=== PATIENT | male | born 1970 | race Caucasian/White ===

== ENCOUNTER 2016-11-26 00:26 | Observation (INO) | payer BC ==
[~2016-11-26] VITALS: Ht 185.4 cm; Wt 133.0 kg
[2016-11-26] VITALS (9 sets, daily range): BP systolic 104–151; BP diastolic 56–86
[~2016-11-26 00:26] MED LIST: ACIPHEX 20 MG T20 MG PO; ASPIR-LOW81 MG PO; AUGMENTIN 500 M1 TAB PO; METOPROLOL25 MG PO; NIACIN500 M2 PO; NORCO 325 MG-51 TAB PO; PREDNISONE 20MG20 MG PO; SIMVASTATIN20 MG PO; ULTRAM50 MG PO; VENLAFAXINE75 M1 PO
[2016-11-26 00:41] LABS: URINE BILIRUBIN - DIPSTICK NEGATIVE (NEG); URINE BLOOD TRACE-INTACT (NEG)
[2016-11-26] MEDS ORDERED: METFORMIN HCL1000 MG PO (00:41)
[2016-11-26] MEDS ORDERED: SIMVASTATIN20 MG PO (00:42)
[2016-11-26] MEDS ORDERED: PANTOPRAZOLE SO40 MG PO (00:42)
[2016-11-26] MEDS ORDERED: ASPIRIN 81MG TA81 MG PO (00:43)
[2016-11-26] MEDS ORDERED: NIASPAN500 MG PO (00:43)
--- OUTSIDE RECORDS SUMMARY | 2016-11-26 00:49 | External Medical Summary Rpt ---
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 530.81 530.81 01-13-2013 [facility] REFLUX [facility] 692.71 692.71 01-13-2013 [facility] V58.69 V58.69 OT 01-13-2013 [place] [facility] Allergies, Adverse Reactions, Alerts Type Allergy to substance Drug Allergy Adverse Reaction to Substance Substance Reaction Severity INGREDIENT: NO KNOWN Unknown Unknown - NO KNOWN DRUG ALLERGY NO KNOWN DRUG Unknown Unknown ALLERGIES Medications Na ND Rx Da Fi Fi Am Da Di Ph RX Ph St me C No te ll ll ou ys ag ar # ys at rm s nt no ma ic us Or Da si cy ia de te s n re d SI 61 06 0 No LV 57 -2 AD 00 5- Lo EN 13 20 ng E 14 13 er 1% 0 Ac CR ti EA ve M AC 51 06 0 No ET 07 -2 AM 90 5- Lo IN 16 20 ng OP 19 13 er HE 9H N Ac W/ ti CO ve DE IN E #3 TA K HY [address] 51 -2 OX 75 5- Lo YZ 60 20 ng IN 12 13 er E 5 50 Ac ti MG ve /M L AL De 00 06 0 No xa 51 -2 me 74 5- Lo th 90 20 ng as 12 13 er on 5 e Ac 4M ti G/ ve Ml Sd v KE 00 06 0 No TO 40 -2 RO 93 5- Lo LA 79 20 ng C 60 13 er 60 1 Ac MG ti /2 ve ML AL Vital Signs 01-13-2013 04:15 Name Value Interpretat Reference Comment ion Range BP 81 mm[Hg] Diastolic BP Systolic 155 mm[Hg] Heart 111 /min Rate/Pulse O2% 97 % Respiratory 20 /min Rate Encounters Encounter Start End Date Code Location Performer Type Date Emergency NATHALIE Boston MD (ER) 3 03:40 3 04:16 [facility]
--- OUTSIDE RECORDS SUMMARY | 2016-11-26 00:49 | External Medical Summary Rpt ---
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 E[facility] USE Hospital Allergies, Adverse Reactions, Alerts [...] Boston MD (ER) 3 03:40 3 04:16 [facility]
--- OUTSIDE RECORDS SUMMARY | 2016-11-26 00:50 | External Medical Summary Rpt ---
Author Author [employer], [employer] Organization [employer] Address Unknown Phone Unavailable
--- OUTSIDE RECORDS SUMMARY | 2016-11-26 00:50 | External Medical Summary Rpt ---
Author Author [employer] Organization [employer] Address Unknown Phone Unavailable Purpose Continuity of Care Document - through 2016
[2016-11-26 01:12] LABS: LYMPH # 3.1 K/mm3 (0.7-4.5); LYMPH % 26.6 % (10-50)
[2016-11-26 01:23] LABS: HEMOGLOBIN 15.4 g/dL (14.1-18.0)
[2016-11-26 01:36] LABS: BUN 7 mg/dL (7-18)
[2016-11-26 01:37] LABS: GFR (ESTIMATED) 65 ML/MIN (>60)
--- NOTE | 2016-11-26 01:59 | Emergency Room Report ---
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 N Clinical Suspician of Infection? N Mental Status: 1 - Regular (Normal Baseline) Sepsis Risk:Possible Sepsis Risk Have you (or family members/close friends) recently traveled outside the [place]? N If Yes, where/when: Have you had exposure to infectious disease within the past month? TB? Other? Specify: Source patient, RN notes reviewed, family, RN/MD Exam Limitations no limitations Comment This is a 46-year-old male patient presenting to the emergency room with sudden onset of RIGHT upper quadrant abdominal pain since 10:30 PM, associated with several episodes of nausea or vomiting. Patient has eaten some pizza around 9 PM, after which he started getting sick. Patient denies any previous similar episodes in the past. She denies any recent travel or exposure to sick contacts. He denies any diarrhea, shortness of breath, fever, chills, back pain. ALLERGIES Coded Allergies: No Known Allergies (11/26/16) Home Medications Reported Medications Metoprolol Tartrate (Metoprolol) 25 MG PO DAILY VENLAFAXINE HCL (Venlafaxine HCl ER) 75 MG PO DAILY Simvastatin 20 MG PO DAILY METFORMIN HCL (Metformin 1000MG) 1,000 MG PO BID #180 Pantoprazole Sodium (Pantoprazole 40MG) 40 MG PO BID Simvastatin 20 MG PO DAILY NIACIN (Niacin) 500 MG PO QHS ASPIRIN (Aspirin) 81 MG PO DAILY History Medical History General CAD? No Angina: No AK: No Hypertension? Yes Hyperlipidemia? Yes CHF? No DVT? No PE? No COPD? No Asthma? No Anemia? No GERD? Yes Gastric ulcers? Yes GI Bleed? No Hernia? No Thyroid Problems? No Hypothyroidism? No CVA? No Seizures? No Diabetes? No Insulin Dependent: No Insulin Pump: No Home FSBS? No Renal Insuffiency? No End Stage Renal Disease? No UTI? No Stones? Yes BPH? No GB Disease: No Nephritic Syndrome? No Asplenia? No Hepatitis? No Arthritis? No Migraines? No Cataracts? No Glaucoma? No MRSA? No HIV? No TB? No Anxiety? No Depression? Yes Cancer? No More? No Immunization Hx DT/Tetanus 04/06/2010 Flu 2YRSorMore Pneumonia NEVER Surgical Hx Previous Surgery?Y T&A VASECTOMY ARTHROSCOPY R. KNEE X 3 RT CLAVICLE REPAIR R ACL LITHOTRIPSY RENAL STENT CYST REMOVED RT WRIST Family History Family Hx Diabetes Yes CAD Yes Hypertension Yes Hyperlipidemia Yes Cancer Yes TB No Social History Smoking Hx Smoker: Never Smoker Tobacco: No Alcohol Alcohol: No Review of Systems All Other Systems Reviewed and Negative Gastrointestinal abdominal pain, denies diarrhea, nausea, vomiting Physical Exam Vital Signs Vital Signs Date Time Temp Pulse Resp B/P Pulse O2 O2 Flow FiO2 Ox Delivery Rate 11/26 0244 20 11/26 0239 86 20 114/61 97 11/26 0115 20 11/26 0101 20 11/26 0031 98.0 109 20 151/86 97 General Appearance normal appearance, WD/WN, severe distress Neck normal inspection, non-tender, supple, full range of motion Respiratory Status Yes: trachea midline, chest symmetrical, non tender chest. No: respiratory distress. Lung Sounds bilateral: normal breath sounds, lungs clear. 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 No Comment 02:45-patient reexamined, he remains in pain, still nauseated, dry heaving. Additional Dilaudid/Phenergan ordered for patient's comfort. Offered fluids to drink, patient declined. DDx: ACS, biliary colic, acute pancreatitis, bowel perforation, ileus, bowel obstruction, etc. 02:55am - case discussed Dr. Jaimes, advised of patient's presentation, findings, vital signs, ED course. Dr. Jaimes agreeable with admission, as well as management so far. Care transferred Dr. Jaimes at this time. I'll write temporary bridge admission orders per hospital protocol. Upon patient's arrival to the floor the unit nurse will contact Dr. Jaimes once again in order to obtain full inpatient admission orders. Results/Orders Laboratory Tests 11/26/16 0050: Sodium 140, Potassium 3.8, Chloride 101, Carbon Dioxide 31, BUN 7, Creatinine 1.2, Estimated Creat Clear 145, Estimated GFR (MDRD) 65, Glucose 118 H, Calcium 9.1, Total Bilirubin 0.3, AST 28, ALT 39, Alkaline Phosphatase 73, Creatine Kinase 123, CK-MB (CK-2) Rel Index 0.4, CK and CKMB Interp < 0.5, Troponin I < 0.02, Total Protein 7.7, Albumin 3.8, Globulin 3.9 H, Albumin/Globulin Ratio 1.0 L, Amylase 49, Lipase 188, WBC 11.7 H, RBC 5.48, Hgb 15.4, Hct 47.9, MCV 87.3, RDW 12.6, Plt Count 335, MPV 5.8 L, Gran % 61.8, Gran # 7.2, Lymphocytes % 26.6, Monocytes % 7.1, Eosinophils % 3.5, Basophils % 1.1, Lymphocytes # 3.1, Monocytes # 0.8, Eosinophils # 0.4, Basophils # 0.1, PUBS MCHC 32.3, MCH 28.2 11/26/16 0030: Urine Color YELLOW, Urine Appearance CLEAR, Urine pH 6.0, Ur Specific [place] 1.020, Urine Protein NEGATIVE, Urine Ketones NEGATIVE, Urine Blood TRACE-INTACT, Urine Nitrate NEGATIVE, Urine Bilirubin NEGATIVE, Urine Urobilinogen 1.0, Ur Leukocyte Esterase NEGATIVE, Urine Glucose NEGATIVE Current Medication Orders Sig/Shalom Start time Last Medication Dose Route Stop Time Status Admin Hydromorphone HCl 1 MG ONCE ONE 11/26 244 DC 11/26 IV 11/26 245 024 Promethazine HCl 12.5 MG ONCE ONE 11/26 244 DC 11/26 IV 11/26 245 024 Sodium Chloride 1,000 ML .Q1H1M 11/26 244 AC 11/26 IV 11/26 344 024 Sodium Chloride 10 ML PRN PRN 11/26 244 AC IV 11/27 0235 Sodium Chloride 25 ML ONCE ONE 11/26 0245 DC 11/26 IV 11/26 0259 0245 Sodium Chloride 1,000 ML .STK-MED ONE 11/26 0241 DC IV Hydromorphone HCl 1 MG ONCE ONE 11/26 0115 DC 11/26 IV 11/26 0116 0115 Promethazine HCl 0 .STK-MED ONE 11/26 0115 DC .ROUTE Hydromorphone HCl 0 .STK-MED ONE 11/26 0112 DC .ROUTE Ketorolac 30 MG ONCE ONE 11/26 0100 DC 11/26 Tromethamine IV 11/26 010 0101 Ondansetron HCl 4 MG ONCE ONE 11/26 010 DC 11/26 IV 11/26 0101 0101 Sodium Chloride 1,000 ML .Q1H1M 11/26 0100 DC 11/26 IV 11/26 0200 0102 Sodium Chloride 10 ML PRN PRN 11/26 0100 AC IV 11/27 0053 Ondansetron HCl 0 .STK-MED ONE 11/26 0048 DC .ROUTE Sodium Chloride 1,000 ML .STK-MED ONE 11/26 0048 DC IV Ketorolac 0 .STK-MED ONE 11/26 0047 DC Tromethamine .ROUTE Sodium Chloride 10 ML PRN PRN 11/26 0045 AC IV 11/27 0035 Orders Procedure Date/time Status DIET-NOTHING BY MOUTH 11/26 B Active ELECTROCARDIOGRAM REQUEST 11/26 0252 Active CARDIAC ENZYMES 11/[address] ABD & PELVIS W/O CONTRAST 11/[address] ABD/PELVIS REQ 11/26 0053 Active CHEST(2 VIEWS-NOT PORTABLE) 11/26 0053 Active ELECTROCARDIOGRAM REQUEST 11/26 0035 Active IV SALINE LOCK 11/26 0035 Active URINALYSIS/COMPLETE 11/26 003 Complete LIPASE 11/26 003 Complete COMPLETE METABOLIC PANEL 11/26 003 Complete CBC WITH AUTO DIFF 11/26 34 Complete CARDIAC ENZYMES 11/26 003 Complete AMYLASE 11/26 003 Complete FHS-[id number]-HFTVEL BY SAME 11/26 UNK Active 12 LEAD EKG-CANDI (INITIAL) 11/26 UNK Active 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 of ischemic chgs, no ectopy, normal QRS, normal IN, normal EKG, no EKG for comparison, non-spec. ST/Twave chgs, ST elevation, ST depression, LBBB, RBBB, ectopy, abnormal Q waves XRAY/CT/US XRAY/CT/US CT abdomen, pelvis CT interpretation by discussed w/radiologist CT Results see radiologist's report, Shaheen Abreu at 2:28am EST. - "no definite acute abdominal pathology finding" Departure Departure Time of Disposition 0253 Disposition Still a Patient Clinical Impression Primary Impression: Nausea and vomiting Qualifiers: Vomiting type: unspecified Vomiting Intractability: unspecified Qualified Code: R11.2 - Nausea with vomiting, unspecified Secondary Impressions: RUQ abdominal pain Condition STABLE Discharge Counseling Counseled pt/family regarding diagnosis, test results, medications/RX, home care, follow up needs ED Critical Care Critical Care No at 0301
--- NOTE | 2016-11-26 05:10 | RADIOLOGY REPORT PS360 ---
CHEST(2 VIEWS-NOT PORTABLE) HISTORY: Chest pain, epigastric pain CP ORDERING PHYSICIAN: Annabel Jaimes MD PATIENT AGE: 46 years COMPARISON: 12/26/2012 FINDINGS: The cardiomediastinal silhouette and pulmonary vascularity are within normal limits. The lungs are clear without infiltrates, suspicious nodules, or pleural effusions. No acute bony abnormalities. IMPRESSION: Negative chest, no acute finding
--- NOTE | 2016-11-26 05:25 | RADIOLOGY REPORT PS360 ---
CT ABD PELVIS W/O CONTRAST CLINICAL INDICATION: severe epigastric pain with nausea and vomiting, Abdominal pain, epigastric pain, N/V ORDERING PHYSICIAN: Annabel Jaimes MD PATIENT AGE: 46 years COMPARISON: 02/02/2014 TECHNIQUE: Axial images obtained with sagittal and coronal reformats. PROCEDURE: Oral Contrast: None IV Contrast: None . FINDINGS: Lower thorax: No acute finding ABDOMEN: Liver: No masses or biliary dilatation. Gallbladder: Nondistended. No radio opaque stones. Pancreas: No masses or peripancreatic fluid collections. Spleen: Mildly enlarged at 14 cm Adrenals: Unremarkable Kidneys/ureters: There are small punctate bilateral renal nonobstructing calculi. No hydronephrosis. No ureteral calculi. Stomach bowel: Nondistended. No obvious mass or thickening. Appendix: No evidence of appendicitis. PELVIS: Reproductive: Unremarkable Bladder: Nondistended. No obvious stones or masses. ABDOMEN & PELVIS: Peritoneum: No abnormal fluid collections. No obvious inflammatory changes. No free air. Lymph nodes: No enlarged lymph nodes apparent. Vasculature: No evidence of abdominal aortic aneurysm. No retroperitoneal hemorrhage evident. Bones: No acute fracture IMPRESSION: 1. Mild splenomegaly. 2. Otherwise negative CT abdomen and pelvis with no acute intra-abdominal or pelvic pathology apparent 3. No significant change from 02/02/2014
[2016-11-26] MEDS ORDERED: METOPROLOL SUCC50 M4 PO (08:49)
--- NOTE | 2016-11-26 09:13 | PHARMACY CLINIC NOTE ---
Patient Demographics Patient Demographics Admission date: 11/26/16 Date: 11/26/16 Time: 912 Allergies Coded Allergies: No Known Allergies (11/26/16) HEIGHT- FT: 6 IN: 1.00 K.046 VTE General Information Labs: Laboratory Tests 11/26 0050 Hematology Hgb (14.1 - 18.0 g/dL) 15.4 Hct (42.0 - 52.0 %) 47.9 Plt Count (142 - 424 K/mm3) 335 Disclaimer The following section includes nursing documentation that has been pulled in for pharmacy review. Patient's VTE score: 0 Patient's VTE Risk: VERY LOW RISK Clinical trial participant? No VTE prophylaxis [id number] [id number] VTE prophylaxis ordered? Yes Type of prophylaxis/treatment: SHIVANI at 0913
--- NOTE | 2016-11-26 09:21 | HISTORY AND PHYSICAL REPORT ---
History and Physical (FCA) Date of admission: 11/26/16 Chief complaint: stomach pain and vomiting History: History of Present Illness: Mr Stroud is a 46 year old male with a history of Type 2 DM who presented to [facility] ER last PM with nausea, vomiting and abdominal pain. He states that the pain began after eating 2 slices of pizza and taking his PM meds. He describes the pain like someone sitting on his stomach. He denies diarrhea, fever and hematemesis. With the persistent vomiting, he presented to the ER. He received phenergan, hydromorphone, and 2 liters of IVF without relief and was thus admitted for further evaluation and treatment. He is followed by his PCP, Dr. Esquivel. Past Medical History: Medical History: CAD? No Angina: No CT: No Hypertension? Yes Hyperlipidemia? Yes CHF? No DVT? No PE? No COPD? No Asthma? No Anemia? No GERD? Yes Gastric ulcers? Yes GI Bleed? No Hernia? No Thyroid Problems? No Hypothyroidism? No CVA? No Seizures? No Diabetes? Yes Insulin Dependent: No Insulin Pump: No Home FSBS? Yes Renal Insuffiency? No UTI? No Stones? Yes BPH? No GB Disease: No Nephritic Syndrome? No Asplenia? No Hepatitis? No Sickle Cell Disease? No Arthritis? No Migraines? No Cataracts? No Glaucoma? No MRSA? No HIV? No TB? No Anxiety? No Depression? Yes Cancer? No More? No Surgical history: Previous Surgery?Y T&A VASECTOMY ARTHROSCOPY R. KNEE X 3 RT CLAVICLE REPAIR R ACL LITHOTRIPSY RENAL STENT CYST REMOVED RT WRIST Medications: Reported Medications Pantoprazole Sodium (Pantoprazole 40MG) 40 MG PO DAILY Metoprolol Succinate (Metoprolol Succinate XL) 50 MG PO DAILY #90 TAB VENLAFAXINE HCL (Venlafaxine HCl ER) 75 MG PO DAILY Simvastatin 20 MG PO DAILY METFORMIN HCL (Metformin 1000MG) 1,000 MG PO BID #180 NIACIN (Niacin) 500 MG PO QHS ASPIRIN (Aspirin) 81 MG PO DAILY Allergies: Coded Allergies: No Known Allergies (11/26/16) Family History: Family history: Postive for: CAD, DM. Social History: Smoking Hx Tobacco: No Smoker: Never Smoker Type: N/A Packs/day: N/A Are you exposed to second hand No Alcohol: Alcohol: No Hx of Drug Use: Drug Use? 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 Cardiovascular No: chest pain, edema, palpitations. Respiratory No: shortness of air, non-productive. GI Positive for: abdominal pain, nausea, vomitting. No: GERD, anorexia, constipation, diarrhea, hematemeis, hematochezia, melena. (male) No: hematuria. Neurological No: dizziness, gait problem, headache, seizure, syncope. Musculoskeletal No: extremity pain, joint pain, myalgias. Psychiatric Positive for: depression. Physical Exam: Vital signs: 1ST Vital Signs Result Date Time Pulse Ox 97 11/26 30 B/P 151/86 11/26 30 Temp 98.0 11/26 30 Pulse 109 11/26 30 Resp 20 11/26 30 O2 Delivery ROOM AIR 11/26 0404 Exam: General appearance: alert, active, no acute distress, well-developed, well- nourished Eyes: anicteric, EOM's w/normal ROM, pupils reactive to light ENT: mucous membranes moist, pharynx normal, teeth/gums normal Neck: no carotid bruit, lymphadenopathy (absent), thyroid (normal) Cardiovascular: regular rate & rhythm Respiratory: clear to auscultation (bilat anterior and posterior) ABD: non-distended, soft, bowel sounds present, tender epigastrium; + Alvares' s Extremities: no peripheral edema, no calf tenderness Neuro: alert, oriented, speech clear Lab data: Labs: Laboratory Tests 11/26/16 0617: POC Glucose 134 H 11/26/16 0255: Creatine Kinase 101, CK-MB (CK-2) Rel Index 0.7, CK and CKMB Interp 0.7, Troponin I < 0.02 11/26/16 0050: Sodium 140, Potassium 3.8, Chloride 101, Carbon Dioxide 31, BUN 7, Creatinine 1.2, Estimated Creat Clear 145, Estimated GFR (MDRD) 65, Glucose 118 H, Calcium 9.1, Total Bilirubin 0.3, AST 28, ALT 39, Alkaline Phosphatase 73, Creatine Kinase 123, CK-MB (CK-2) Rel Index 0.4, CK and CKMB Interp < 0.5, Troponin I < 0.02, Total Protein 7.7, Albumin 3.8, Globulin 3.9 H, Albumin/Globulin Ratio 1.0 L, Amylase 49, Lipase 188, WBC 11.7 H, RBC 5.48, Hgb 15.4, Hct 47.9, MCV 87.3, RDW 12.6, Plt Count 335, MPV 5.8 L, Gran % 61.8, Gran # 7.2, Lymphocytes % 26.6, Monocytes % 7.1, Eosinophils % 3.5, Basophils % 1.1, Lymphocytes # 3.1, Monocytes # 0.8, Eosinophils # 0.4, Basophils # 0.1, PUBS MCHC 32.3, MCH 28.2 11/26/16 0030: Urine Color YELLOW, Urine Appearance CLEAR, Urine pH 6.0, Ur Specific [place] 1.020, Urine Protein NEGATIVE, Urine Ketones NEGATIVE, Urine Blood TRACE-INTACT, Urine Nitrate NEGATIVE, Urine Bilirubin NEGATIVE, Urine Urobilinogen 1.0, Ur Leukocyte Esterase NEGATIVE, Urine WBC 3-5, Urine Bacteria 1+, Urine Glucose NEGATIVE Radiology results: Results: 11/26/16 CXR IMPRESSION: Negative chest, no acute finding 11/26/16 CT of abdomen/pelvis IMPRESSION: 1. Mild splenomegaly. 2. Otherwise negative CT abdomen and pelvis with no acute intra-abdominal or pelvic pathology apparent 3. No significant change from 02/02/2014 Diagnosis(es): 1. RUQ abdominal pain Status: Acute 2. Nausea and vomiting Status: Acute 3. HTN (hypertension) Status: Chronic 4. Diabetes type 2, controlled Status: Chronic 5. Hyperlipidemia Status: Chronic Plan: RUQ US this AM; pain and nausea control; IVF (Onofre CELESTEChristelle) Date of admission: 11/26/16 History: History of Present Illness: Further to the above history, it is noted that the onset of nausea and vomiting and abdominal pain last night was rather abrupt. He denies previous history of postprandial nausea or abdominal pain. He has no past history of ulcer disease, hiatal hernia, pancreatitis, or gallbladder disease. He does take pantoprazole for reflux. He has had no change in his bowels. No fever. During my interview, he localizes the pain to the epigastric area. Diagnosis(es): 1. RUQ abdominal pain Status: Acute 2. Nausea and vomiting Status: Acute 3. HTN (hypertension) Status: Chronic 4. Diabetes type 2, controlled Status: Chronic 5. Hyperlipidemia Status: Chronic 6. Depression Plan: Patient seen and examined this morning. No further vomiting since admission. He still complains of epigastric pain. Will proceed with gallbladder ultrasound and HIDA scan today as ordered. (Annabel Jaimes MD) at 0921 at 2016
--- NOTE | 2016-11-26 10:19 | RADIOLOGY REPORT PS360 ---
US GALLBLADDER (ABD LTD) HISTORY: Right upper quadrant pain, vomiting, abdominal pain RUQ abdominal pain ORDERING PHYSICIAN: Annabel Jaimes MD PATIENT AGE: 46 years COMPARISON: None FINDINGS: PANCREAS: Unremarkable. No obvious mass or abnormal fluid collection. No ductal dilatation LIVER: No focal liver lesions demonstrated. Homogeneous echogenicity. No intrahepatic biliary ductal dilatation evident RIGHT KIDNEY: Unremarkable. Normal size and echogenicity. No hydronephrosis GALLBLADDER: No gallstones, gallbladder wall thickening, pericholecystic fluid, or biliary dilatation. Gallbladder is somewhat distended measuring up to 10 x 4 cm. Common bile duct is normal at 4 mm IMPRESSION: Mildly distended gallbladder otherwise negative right upper quadrant ultrasound
[2016-11-27] VITALS (7 sets, daily range): BP systolic 116–146; BP diastolic 55–78
[2016-11-27 06:49] LABS: LYMPH # 1.8 K/mm3 (0.7-4.5); LYMPH % 19.7 % (10-50)
[2016-11-27 07:19] LABS: HEMOGLOBIN 13.3 g/dL (14.1-18.0)
--- NOTE | 2016-11-27 08:30 | ACUTE CARE PROGRESS NOTE (QUA) ---
See Addendum Progress Notes Subjective Date 11/27/16 Time 0827 Note Patient states he is having slightly less abdominal pain today. He denies any nausea or vomiting. He states he does have a headache this morning. He had an ultrasound yesterday and is scheduled for a HIDA scan today. Objective Findings Last VS-Temp:99.8 B/P:125/74 Pulse:102 Resp:20 SaO2:96 ROOM AIR Last weight lbs:293 oz:5 K.046 Method:Bed Scales Laboratory Tests 11/27/16 0638: POC Glucose 118 H 11/27/16 0630: Sodium 140, Potassium 4.4, Chloride 104, Carbon Dioxide 33 H, BUN 5 L, Creatinine 1.2, Estimated Creat Clear 146, Estimated GFR (MDRD) 65, Glucose 118 H, Calcium 8.2 L, Total Bilirubin 0.7, AST 20, ALT 34, Alkaline Phosphatase 60, Total Protein 6.5, Albumin 3.1 L, Globulin 3.4 H, Albumin/Globulin Ratio 0.9 L, WBC 8.9, RBC 4.69, Hgb 13.3 L, Hct 41.8 L, MCV 89.1, RDW 12.8, Plt Count 236, MPV 6.7 L, Gran % 67.5, Gran # 6.1, Lymphocytes % 19.7, Monocytes % 9.8 H , Eosinophils % 2.3, Basophils % 0.8, Lymphocytes # 1.8, Monocytes # 0.9, Eosinophils # 0.2, Basophils # 0.1, PUBS MCHC 31.8, MCH 28.3 11/26/16 2207: POC Glucose 145 H 11/26/16 1147: POC Glucose 98 11/26/16 0925: Creatine Kinase 83, CK-MB (CK-2) Rel Index 0.6, CK and CKMB Interp < 0.5, Troponin I < 0.02 Exam General appearance: alert, awake, no acute distress Cardiovascular: regular rate & rhythm Respiratory: clear to auscultation ABD: non-distended, normal bowel sounds, no rebound, soft, no guarding, ttp in the RUQ Extremities: no peripheral edema Reviewed: RUQ U/S - mildly distended GB Assessment/Plan Problem List 1. RUQ abdominal pain Status: Acute 2. Nausea and vomiting Status: Acute 3. HTN (hypertension) Status: Chronic 4. Diabetes type 2, controlled Status: Chronic 5. Hyperlipidemia Status: Chronic 6. Depression Plan: Patient's ultrasound showed a mildly distended gallbladder. He is scheduled for a HIDA scan today. This inpt stay is expected to cross 2 MNs from start of care Yes (Vianney Baldwin) Subjective Date 11/27/16 Time 0850 Assessment/Plan Problem List 1. RUQ abdominal pain Status: Acute 2. Nausea and vomiting Status: Acute 3. HTN (hypertension) Status: Chronic 4. Diabetes type 2, controlled Status: Chronic 5. Hyperlipidemia Status: Chronic 6. Depression Plan: Pt seen and examined. CC this AM is headache. Awaiting HIDA scan today. (Annabel Jaimes MD) at 0829 at [id number]
--- NOTE | 2016-11-27 13:43 | RADIOLOGY REPORT PS360 ---
[facility] ([facility]) COMPARISON: None HISTORY: Right upper quadrant pain, biliary sludge seen on ultrasound the gallbladder 11/26/2016 TECHNIQUE: 8.10 mCi technique 9M Choletec was injected. Imaging was obtained up through 1 hour and this is followed x 2.6 mcg of CCK injected intravenously. FINDINGS: The hepatic phase appears normal. There is activity in common bile duct 10 to 15 minutes with activity first seen in gallbladder at 30 minutes. There is beginning washout of activity from liver at 60 minutes with prominent activity in common bile duct and duodenal sweep. Following injection of CCK the ejection fraction was calculated at 40%, there is no pain with CCK injection. IMPRESSION: Somewhat small gallbladder with low normal ejection fraction
--- NOTE | 2016-11-27 16:30 | CONSULT NOTE ---
Standard Demographics Patient Demo Date of Consultation: 11/27/16 Referring Provider: Ramsey Jaimes MD Reason for Consultation: abdominal pain PRIMARY DIAGNOSIS: ABDOMINAL PAIN Allergies: Coded Allergies: No Known Allergies (11/26/16) History of Present Illness Chief Complaint: Abdominal pain History of Present Illness: Patient is a 46-year-old white male. In the evening of 11/25/16 he developed onset of epigastric and RIGHT upper quadrant pain. Patient states that this occurred spontaneously. 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 At that time he underwent CT scan of the abdomen and pelvis without any contrast whatsoever. The revealed no findings of any acute pathology. However the patient continued to have pain and despite narcotics and anti-emetics his symptoms persisted. He was admitted for inpatient management. Yesterday after admission he underwent gallbladder ultrasound which was normal. This morning he underwent a HIDA scan which revealed an ejection fraction of 40 percent. There was reportedly no reproduction of symptoms with CCK injection. Patient has continued to have RIGHT upper quadrant pain requiring morphine and hydromorphone. Surgical consultation was obtained this afternoon. Patient denies any prior history of gallbladder disease. He does say he had a previous history of ulcers but they were "cured with medication" when he was a student. He has had some associated nausea. Past Medical History Reports: hypertension, peptic ulcer disease, diabetes mellitus. Surgical History Previous Surgery?Y T&A VASECTOMY ARTHROSCOPY R. KNEE X 3 RT CLAVICLE REPAIR R ACL LITHOTRIPSY RENAL STENT CYST REMOVED RT WRIST Allergies Coded Allergies: No Known Allergies (11/26/16) Medications: Reported Medications Pantoprazole Sodium (Pantoprazole 40MG) 40 MG PO DAILY Metoprolol Succinate (Metoprolol Succinate XL) 50 MG PO DAILY #90 TAB VENLAFAXINE HCL (Venlafaxine HCl ER) 75 MG PO DAILY Simvastatin 20 MG PO DAILY METFORMIN HCL (Metformin 1000MG) 1,000 MG PO BID #180 NIACIN (Niacin) 500 MG PO QHS ASPIRIN (Aspirin) 81 MG PO DAILY Smoking Hx Tobacco: No Smoker: Never Smoker Type: N/A Packs/day: N/A Are you/the child exposed to second-hand smoke: No Alcohol Alcohol: No Hx of Drug Use Drug Use? No Review of Systems Constitutional No: chills. Skin No: bruising. Immune/allergy No: anaphalaxis. Eyes No: vision loss. ENT No: hearing loss. Respiratory No: shortness of air. Cardiovascular No: chest pain. GI Positive for: abdomen, nausea. (male) No: flank pain. Musculoskeletal No: extremity swelling. Heme No: bleeding. Endocrine No: cold intolerance. Neurological No: change in LOC. Physical Exam Exam General appearance no acute distress, alert, oriented, well nourished Respiratory clear to auscultation Cardiovascular regular rate and rhythm Abdomen soft Findings/Data An examination his abdomen is soft. Is minor tenderness without guarding or rebound in the RIGHT upper quadrant and epigastrium. Plan Plan: Patient has RIGHT upper quadrant and epigastric pain with some mild tenderness of uncertain etiology. His gallbladder workup has essentially been normal with a normal ultrasound and HIDA scan revealing normal ejection fraction, albeit somewhat low normal, without reproduction of pain with CCK injection. At this point I will tentatively plan for upper endoscopy tomorrow morning to investigate for possible upper GI etiology. at 1632
[2016-11-28] VITALS (16 sets, daily range): BP systolic 99–158; BP diastolic 58–94
--- NOTE | 2016-11-28 09:37 | ACUTE CARE PROGRESS NOTE (QUA) ---
Progress Notes Subjective Date 11/28/16 Time 0933 Note Pt seen and examined. Abdominal pain is about the same. States he had recurrene of his headache all night. He has a hx of headaches but says it has been a while since he has had one this bad. Objective Findings Laboratory Tests 11/28/16 0638: POC Glucose 98 11/27/16 2119: POC Glucose 119 H 11/27/16 1708: POC Glucose 84 11/27/16 1231: POC Glucose 96 Last VS-Temp:99.3 B/P:144/86 Pulse:90 Resp:20 SaO2:95 ROOM AIR Last weight lbs:293 oz:5 K.046 Method:Bed Scales Exam General appearance: alert, appears uncomfortable Cardiovascular: regular rate & rhythm Respiratory: clear to auscultation ABD: non-distended, soft, moderate RUQ tenderness Assessment/Plan Problem List 1. RUQ abdominal pain Status: Acute 2. Nausea and vomiting Status: Acute 3. HTN (hypertension) Status: Chronic 4. Diabetes type 2, controlled Status: Chronic 5. Hyperlipidemia Status: Chronic 6. Depression Plan: He is scheduled for EGD this AM. Will address headache after EGD. This inpt stay is expected to cross 2 MNs from start of care Yes at 0937
--- NOTE | 2016-11-28 10:13 | Operative Note ---
Endoscopy Report Date: 11/28/16 Preoperative diagnosis: RIGHT upper quadrant and epigastric pain Procedure Type of procedure: Esophagogastroduodenoscopy with biopsies Indications: Patient is a 46-year-old white male. 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 CT scan without contrast on admission was unremarkable. He had gallbladder workup done as an inpatient which was normal. Surgical consultation was obtained due to ongoing symptoms. He does give a history in the distant past of ulcer disease. Plan was made for upper endoscopy. Consent was obtained and patient was taken to same-day surgery endoscopy procedure room. He was positioned in a lateral decubitus position. Adequate intravenous sedation was achieved. Olympus endoscope was inserted via the oropharynx and advanced to the esophagus which appeared grossly normal. Stomach was cannulated and insufflated. Retroflexion revealed no evidence of any significant hiatal hernia. There was diffuse moderate nonerosive gastritis. Pylorus was traversed. Duodenal bulb and sweep were inspected and appeared grossly normal endoscopically. Endoscope was withdrawn into the gastric lumen and antral mucosal biopsy was obtained for CLOtest for H. pylori. Several gastric biopsies were obtained. Gastric mucosa was somewhat indurated and edematous and erythematous. Several biopsies were obtained of the gastroesophageal junction to evaluate for possible Lucas's. Endoscope was withdrawn. Findings 1. Gastritis Follow-Up Follow-Up: Continue proton pump inhibitors. Mild gastritis may explain some of his symptoms but his symptoms seems to be out of proportion to the findings on upper endoscopy. He may have some degree of gallbladder disease but his workup has essentially been negative with only a low normal ejection fraction without reproduction of symptoms on CCK. At this time I would continue proton pump inhibitors and go ahead and start a diet. If he tolerates he may be able to follow-up as an outpatient. If his symptoms persist consideration may be given for potential gallbladder etiology as an outpatient. at 1012
[2016-11-29 00:16] VITALS: BP 128/72
[2016-11-29 04:57] VITALS: BP 129/68
[2016-11-29 07:34] VITALS: BP 115/62
[2016-11-29] MEDS ORDERED: CARAFATE 1GM TAB1 GM PO (08:29)
[2016-11-29] MEDS ORDERED: TRAMADOL 50MG T50 MG PO (08:30)
--- NOTE | 2016-11-29 08:41 | ACUTE CARE PROGRESS NOTE (QUA) ---
Progress Notes Subjective Date 11/29/16 Time 0840 Note EGD results noted. He had a good day yesterday. He is tolerating diet with mild pain but no nausea or vomiting. States he had a soft BM yesterday. He has another headache this AM and thinks it may be the bed and pillow. Objective Findings Laboratory Tests 11/29/16 0634: POC Glucose 102 11/28/16 2109: POC Glucose 163 H Last VS-Temp:98.2 B/P:115/62 Pulse:67 Resp:20 SaO2:100 ROOM AIR Last weight lbs:293 oz:5 K.046 Method:Bed Scales Exam General appearance: alert, no acute distress ENT: mucous membranes moist Cardiovascular: regular rate & rhythm Respiratory: clear to auscultation ABD: non-distended, normal bowel sounds, soft, mild RUQ tenderness Assessment/Plan Problem List 1. RUQ abdominal pain Status: Acute 2. Nausea and vomiting Status: Acute 3. HTN (hypertension) Status: Chronic 4. Diabetes type 2, controlled Status: Chronic 5. Hyperlipidemia Status: Chronic 6. Depression 7. Headache Assessment/Plan tension vs cervicogenic Plan: Dr. Gonzalez recommend continued medical treatment of his gastritis and if he has recurring symptoms will entertain possible lap georges. Will discharge home today and have him f/u with his PCP and with Dr. Gonzalez as outpt. This inpt stay is expected to cross 2 MNs from start of care Yes at 1354
[2016-11-29 08:52] VITALS: BP 115/62
== END 2016-11-29 09:45 | disposition home or self-care (01) ==
LOC: ER 00:26 → 2ND 03:07
PROVIDERS: Emergency Medicine; Family Medicine; Surgery
PROC: 0DB78ZX Excision of Stomach, Pylorus, Via Natural or Artificial Opening Endoscopic, Diagnostic (ICD-10-PCS; principal; 2016-11-28 11:45)
DX: K29.70 Gastritis, unspecified, without bleeding (principal); R10.11 Right upper quadrant pain; I10 Essential (primary) hypertension; E11.9 Type 2 diabetes mellitus without complications
CPT/HCPCS: J2405